=== PATIENT | female | born 2000 | race African-American/Black ===

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

== ENCOUNTER 2022-06-12 23:53 | Emergency (ER) | payer MEDICAID ==
[~2022-06-12] VITALS: Ht 160 cm; Wt 145.1 kg
[~2022-06-12 23:53] MED LIST changes: +HYDR-4226 PO; -SULF1TAB35 PO; +SULF1TAB38 PO
[2022-06-12 23:59] VITALS: BP 130/79
[2022-06-13] MEDS ORDERED: AUGMENTIN 875 MG TAB (AMOXICILLIN/CLAVULANATE) PO ONE (00:15)
[2022-06-13] MEDS ORDERED: TETANUS,DIPTH,PERTUSS P/F (BOOSTRIX) 0.5 ML VIAL IM ONE (00:15)
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
[2022-06-13] MEDS ORDERED: AMOX1TAB12 PO (00:25)
== END 2022-06-13 00:32 | disposition home or self-care (01) ==
LOC: EDUNIT# 23:53 → ER 23:54
DX: S51.812A Laceration without foreign body of left forearm, initial encounter (principal); S00.33XA Contusion of nose, initial encounter; Z23 Encounter for immunization; Y04.1XXA Assault by human bite, initial encounter; Y92.89 Other specified places as the place of occurrence of the external cause
CPT/HCPCS: 90715; 99284